=== PATIENT | female | born 1975 | race Caucasian/White ===

== ENCOUNTER 2021-05-21 18:20 | Emergency (ER) | payer BC, SELFPAY ==
[2021-05-21] VITALS (22 sets, daily range): BP systolic 118–138; BP diastolic 58–99; PULSE 60–79; RESP 17–34; TEMP 36.9; O2SAT 97–100
--- NOTE | 2021-05-21 18:21 | DI.RAD.S_ITS ---
PROCEDURE: XR HIP W PEL IF DONE RT 2V INDICATIONS: hip pain, dislocation TECHNIQUE: AP pelvis with lateral view(s) of the right hip(s). COMPARISON: None. FINDINGS: Bones: No fractures but there is a dislocation at the right total hip arthroplasty which appears perched by the femoral component against the posterior lip of the acetabular component of the arthroplasty. The left hip arthroplasty appears intact. No [place] bone fracture is found.. Pelvic ring appears intact. No suspicious bony lesions. Soft tissues: The visualized bowel gas pattern is normal. No suspicious soft tissue calcifications. IMPRESSION: A support bubble is overlapping the obturator ring on the right. 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 [place] prior left hip arthroplasty appears normal. Dictated by: Salo Calderon M.D. on 05/21/2021 at 19:03 Approved by: Salo Calderon M.D. on 05/21/2021 at 19:05
[2021-05-21] MEDS: propofoL 200 MG/20 ML VIAL 100 MG IV (18:55)
--- NOTE | 2021-05-21 18:58 | DI.RAD.S_ITS ---
PROCEDURE: XR HIP RT 1V INDICATIONS: hip reduction TECHNIQUE: Single frontal views of the hip were acquired. COMPARISON: [facility], CR, XR HIP W PEL IF DONE RT 2V, 05/21/2021, 18:18. FINDINGS: Bones: No fractures or dislocations-the right arthroplasty dislocation has been successfully reduced without [place] bone fracture. No suspicious bony lesions. The visualized pelvic ring appears intact. Soft tissues: No suspicious soft tissue calcifications or masses. IMPRESSION: Successful reduction of hip arthroplasty dislocation on the right. Dictated by: Salo Calderon M.D. on 05/21/2021 at 19:28 Approved by: Salo Calderon M.D. on 05/21/2021 at 19:28
--- NOTE | 2021-05-21 18:59 | ED_ITS ---
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 She had rolled over relatively awkwardly and felt a pop in her hip and now has si gnificant pain and cannot ambulate. She has some numbness and tingling in her foot and states that she has never dislocated previously. She is otherwise well and free of complaint. She presents by EMS for evaluation of a likely dislocated hip. she has no medical allergies and has been NPO since 1500 Related Data Allergies Allergy/AdvReac Type Severity Reaction Status Date / Time Penicillins Allergy Rash Verified 05/21/21 18:53 Review of Systems Review of Systems Narrative: GENERAL: Denies chills, fatigue, malaise, fever, sweats. HEENT: Denies sinus pain, ear pain, sore throat, difficulty swallowing, dizziness. RESPIRATORY: Denies dyspnea, cough, wheezing, hemoptysis, sputum. CARDIOVASCULAR: Denies chest pain, palpitations, orthopnea, edema, GASTROINTESTINAL: Denies nausea, vomiting, abdominal pain, diarrhea, constipation, melena. : Denies dysuria, frequency, incontinence, hematuria, urinary retention. MUSCULOSKELETAL: see HPI SKIN: Denies rash, skin lesions, or other NEUROLOGIC: Denies weakness, headache, numbness, change in speech, confusion, seizures, incoordination. PSYCHIATRIC: No concerning psychosocial issues. 12 point review of systems is negative except for those stated above Patient History Social History Smoking Status: Never smoker Smoking Status: Never smoker alcohol intake frequency: other Substance Use Type: marijuana Exam Narrative Exam Narrative: GENERAL: [45] year old patient appears stated age. Well- developed patient, in mild distress. HEAD: Atraumatic. Normocephalic. EYES: Pupils equal round and reactive. Extraocular motions intact. No scleral icterus. No injection or drainage. ENT: Nose without bleeding, purulent drainage. Throat without erythema, tonsillar hypertrophy or exudate. Airway patent. NECK: Trachea midline. Non tender CARDIOVASCULAR: Regular rate and rhythm without murmurs, gallops, or rubs. RESPIRATORY: Clear to auscultation. Breath sounds equal bilaterally. No wheezes, rales, or rhonchi. GASTROINTESTINAL: Abdomen soft, non-tender, nondistended. EXTREMITIES: Right hip pain, tingling in her foot, no discoloration cap refill less than 2 seconds, shortened and internally rota BACK: Nontender without deformity or crepitance. No flank tenderness. NEURO: AOx3. SKIN: No rash or erythema of visible areas Initial Vital Signs Initial Vital Signs: Vital Signs Temperature 98.5 F 05/21/21 18:39 Pulse Rate 64 05/21/21 18:39 Respiratory Rate 17 05/21/21 18:39 Blood Pressure 136/92 H 05/21/21 18:39 Pulse Oximetry 100 05/21/21 18:39 Procedures Orthopedic Joint Reduction Joint #1: Side: right Joint Reduction Location: hip Analgesia: procedural sedation Technique used: traction/counter-traction and direct manipulation Post-reduction neuro exam: intact Post-reduction vascular: intact Post Reduction X-Ray Obtained: Yes Post Reduction X-Ray Results: reduced Splint Applied: No Patient Tolerated Procedure: Well Procedural Sedation Consent signed: Yes Time out performed: Yes Indication: fracture/dislocation reduction ASA Class: I Mallampati Airway Classification: Class I Preparation: cardiac exercise specialist applied, pulse oximeter, capnometry used, supplemental O2 applied, suction/airway equipment at bedside and IV secured IV Propofol dose (mg): 100 Intraservice time/total sedation time (min): 10 ED Sedation Level: Moderate (Concious) Patient Tolerated Procedure: Well Course Orders Ordered: Discontinued Medications Propofol (Propofol 200 Mg/20 Ml Vial) 100 mg IV NOW ONE Stop: 05/21/21 18:29 Last Admin: 05/21/21 18:55 Dose: 100 mg Documented by: BOB Vital Signs Vital signs: Vital Signs - 8 hr 05/21/21 18:39 Temperature 98.5 F Pulse Rate 64 Respiratory Rate 17 Blood Pressure 136/92 H Pulse Oximetry 100 MDM - Extremity Injury (Lower) Lab Data Labs: Lab Results 05/21/21 Range/Units 18:44 SARS-CoV-2 (PCR) Negative (Negative) Point of Care Testing Test Results Not applicable Imaging Data Extremity x-ray #1: Radiologist's Impression: [address] [id number] ReportSigned Patient: Hayes Maciel#: [id number]: 1975Acct:[id number]/Sex: 45 / FDate of Service: 05/21/21Loc: EDAccession Number: [id number] Procedure: XR hip w pel if done RT 2V Ordering Provider: Travis Cardona D.O. PROCEDURE: XR HIP W PEL IF DONE RT 2V INDICATIONS: hip pain, dislocation TECHNIQUE: AP pelvis with lateral view(s) of the right hip(s). COMPARISON: None. FINDINGS: Bones: No fractures but there is a dislocation at the right total hip arthroplasty which appears perched by the femoral component against the posterior lip of the acetabular component of the arthroplasty. The left hip arthroplasty appears intact. No [place] bone fracture is found.. Pelvic ring appears intact. No suspicious bony lesions. Soft tissues: The visualized bowel gas pattern is normal. No suspicious soft tissue calcifications. IMPRESSION: A support bubble is overlapping the obturator ring on the right. 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 [place] prior left hip arthroplasty appears normal. Dictated by: Salo Calderon M.D. on 05/21/2021 at 19:03 Approved by: Salo Calderon M.D. on 05/21/2021 at 19:05 Extremity x-ray #2: Radiologist's Impression: Meghan Maciel 45 F [address] [id number] ReportSigned Patient: Meghan Maciel [facility]#: [id number]: 1975Acct:[id number]/Sex: 45 / FDate of Service: 05/21/21Loc: EDAccession Number: [id number] Procedure: XR hip RT 1V Ordering Provider: Travis Cardona D.O. PROCEDURE: XR HIP RT 1V INDICATIONS: hip reduction TECHNIQUE: Single frontal views of the hip were acquired. COMPARISON: [facility], , XR HIP W PEL IF DONE RT 2V, 05/21/2021, 18:18. FINDINGS: Bones: No fractures or dislocations-the right arthroplasty dislocation has been successfully reduced without [place] bone fracture. No suspicious bony lesions. The visualized pelvic ring appears intact. Soft tissues: No suspicious soft tissue calcifications or masses. IMPRESSION: Successful reduction of hip arthroplasty dislocation on the right. Dictated by: Salo Calderon M.D. on 05/21/2021 at 19:28 Approved by: Salo Calderon M.D. on 05/21/2021 at 19:28 Discharge Plan Departure Patient Disposition: Home Clinical Impression: Dislocation, hip Qualifiers: Encounter type: initial encounter Laterality: right Qualified Code(s): S73.004A - Unspecified dislocation of right hip, initial encounter Instructions: DI for Hip Dislocation -- Adult Activity Restrictions/Additional Instructions: *You have been diagnosed with [hip dislocation status post reduction] *What to do: *Please continue to take your regular medications as directed. [ ] New medication prescriptions sent to your pharmacy: [ ] [ ] New medication written as a paper prescription [ x] No new medications given * please follow the discharge instructions you were given upon discharge from the hospital when you had your hip surgeries initially. Avoid flexing at the hip, take special care getting out of chairs and off of the bed. *If you do not have a primary care provider please contact the [facility] Resource line at [phone]. They will ask some questions about your medical history and help get you set up with a doctor in the community. *Return to Emergency Department if you should have any new, worsening or concerning symptoms, such as [fever greater than 101 F, shaking chills, worsening pain, persistent vomiting or other bothersome symptoms]
[2021-05-21 19:08] LABS: COVID19 -Nasal RAPID Negative (Negative)
== END 2021-05-21 20:00 | disposition home or self-care (01) ==
PROVIDERS: Emergency Provider Emergency Medicine
DX: S73.004A Unspecified dislocation of right hip, initial encounter (principal); R20.2 Paresthesia of skin; Z20.822 Contact with and (suspected) exposure to COVID-19; Z96.643 Presence of artificial hip joint, bilateral
CPT/HCPCS: 27265; 73501; 73502; 87635; 99152; 99284; C9803; J2704